=== PATIENT | female | born 1995 | race Hispanic/Latino ===

== ENCOUNTER 2019-03-01 00:09 | Outpatient (CLI) | payer OTHER ==
[2019-03-01 17:42] LABS: Hemoglobin 14.1 g/dL (12.0-16.0); Mean Corpuscular HGB CONC 34.2 g/dL (32.0-36.0); Mean Corpuscular Hemoglobin 29.3 pg (27.0-31.0); Mean Corpuscular Volume 85.6 fL (78.0-98.0); Platelet Count 261 thou/uL (130-400); RBC Distribution Width 11.6 % (11.5-14.5); Red Blood Cell (RBC) Count 4.82 mill/uL (4.20-5.40); White Blood Cell (WBC) Count 9.3 thou/uL (4.8-10.8)
[2019-03-01 17:44] LABS: BHCG - Serum Negative (NEGATIVE); Pregs Control Background? CLEAR/WHITE (CLR/WHITE); Pregs Control Bar Appear? YES (CONTROL BAR)
[2019-03-01 18:03] LABS: Anion Gap 14 mmol/L (10-20); BUN (Urea Nitrogen) 12 mg/dL (7.0-18.7); Calc. Creatinine Clearance 0 mL/min (70-130); Calcium 9.7 mg/dL (7.8-10.44); Carbon Dioxide 21 mmol/L (22-29); Chloride 109 mmol/L (98-107); Estimated GFR-MDRD 79; Glucose 83 mg/dL (70-105); Potassium 4.1 mmol/L (3.5-5.1); Sodium 140 mmol/L (136-145)
--- NOTE | 2019-03-04 07:06 | EKG ---
Test Reason : Blood Pressure : / mmHG Vent. Rate : 069 BPM Atrial Rate : 069 BPM P-R Int : 158 ms QRS Dur : 090 ms QT Int : 378 ms P-R-T Axes : 064 087 067 degrees QTc Int : 405 ms Normal sinus rhythm with sinus arrhythmia Normal ECG No previous ECGs available Confirmed by AMAURY BOUDREAUX ([id number]) on 03/04/2019 7:06:38 AM Referred By: RASHI Confirmed By:AMAURY BOUDREAUX
== END 2019-03-01 00:10 | disposition home or self-care (01) ==
LOC: LABBT 00:09
PROVIDERS: ATTEND Neurological Surgery
DX: Z01.818 Encounter for other preprocedural examination (principal); M54.16 Radiculopathy, lumbar region
CPT/HCPCS: 80048; 84703; 85027; 93005; 93010

== ENCOUNTER 2019-03-03 05:45 | Day surgery (SDC) | payer OTHER ==
[2019-03-01 16:53] VITALS: BMI 28.3
[2019-03-03] MEDS ORDERED: Fentanyl 100 MCG/2 ML VIAL ONE ×2 (06:21→07:39)
[2019-03-03] MEDS ORDERED: Midazolam HCl 2 mg/2 ml Vial ONE (06:50)
[2019-03-03] MEDS ORDERED: HYDROmorphone 2 MG/ML VIAL ONE (07:58)
--- NOTE | 2019-03-03 08:12 | OP ---
DATE OF PROCEDURE: 03/03/2019 [place] HAND: Alina Crenshaw PA-C PROCEDURE PERFORMED: Right L4-L5 microdiskectomy. DESCRIPTION OF PROCEDURE: The patient was brought to the operating room and intubated. She was rolled in the prone position on gel-filled chest rolls. An incision was made exposing right L4-L5 and the level was confirmed by x-ray. We performed a right L4-L5 hemilaminectomy and removed the ligament, identified the right L5 nerve root and beneath it was a large extruded with disk herniation removed in one large piece. Several additional fragments were then removed. After complete decompression was secured, the wound was extensively irrigated and maximum hemostasis was secured. Vancomycin powder was applied and the wound was closed in anatomic layers. Job ID: [id number]
[2019-03-03] MEDS ORDERED: Ondansetron PF 4 MG/2 ML Vial ONE (13:26)
[2019-03-03] MEDS ORDERED: Rocuronium Bromide 10 MG/ML (10ML VIAL) ONE (13:26)
[2019-03-03] MEDS ORDERED: Glycopyrrolate 0.2 MG/ML 5 ML SYRINGE ONE (13:26)
[2019-03-03] MEDS ORDERED: Lidocaine 1% PF 5 ML VIAL ONE (13:26)
[2019-03-03] MEDS ORDERED: PROPOFOL 200 MG/20 ML VIAL ONE (13:26)
[2019-03-03] MEDS ORDERED: Dexamethasone 20 MG/5 ML VIAL ONE (13:26)
== END 2019-03-03 10:18 | disposition home or self-care (01) ==
LOC: SDC 05:45
PROVIDERS: ATTEND Neurological Surgery
PROC: 01NB0ZZ Release Lumbar Nerve, Open Approach (ICD-10-PCS; principal; 2019-03-03)
DX: M51.16 Intervertebral disc disorders with radiculopathy, lumbar region (principal)
CPT/HCPCS: 76000; J0690; J1100; J1170; J2001; J2250; J2405; J2704; J3010; J3370

== ENCOUNTER 2019-03-17 16:08 | Outpatient (CLI) | payer OTHER ==
--- NOTE | 2019-03-17 16:38 | RAD ---
LUMBAR SPINE: 03/17/19 Two views. HISTORY: Lumbar radiculopathy. On AP view, there is slight curvature to the left. This may be positional. In the lateral view, the l umbar vertebrae maintain normal height and alignment. Disc spaces are preserved. No evidence of spon dylolisthesis or spondylolysis. There is mild facet hypertrophy present and some minimal spurring at L4-5. There is mild loss of disc space at L4-5. IMPRESSION: There are early mild degenerative changes at L4-5 with minimal spurring and mild loss of disc space. Mild facet hypertrophy is also noted. Curvature in the AP projection is seen possibly positional. POS: [facility]
== END 2019-03-17 16:09 | disposition home or self-care (01) ==
LOC: TBSIIMAG 16:08
PROVIDERS: ATTEND Neurological Surgery
DX: M47.26 Other spondylosis with radiculopathy, lumbar region (principal)
CPT/HCPCS: 72100

== ENCOUNTER 2019-08-12 15:21 | Outpatient (CLI) | payer OTHER ==
--- NOTE | 2019-08-12 17:00 | MRI ---
MRI Lumbar Spine with and without contrast: HISTORY: Lumbar radiculopathy COMPARISON: None FINDINGS: Conus medullaris is normal in morphology and terminates at the L1 level. There is endplate marrow edema of inferior L4 and superior L5 related to Modic type I degenerative si gnal alteration. No significant malalignment. Posterior decompression of L4-5 level with evidence of a right hemilaminectomy. Incidental note of small T2 hyperintensity of the posterior left kidney likely a small cyst. Evaluation of postcontrast imaging reveals enhancement related to posterior decompression of the L4-5 level. There is right asymmetric enhancement of the vertebral canal of the L4-5 level compatible with epidural fibrosis. L1-2:No significant stenosis L2-3:No significant stenosis L3-4:Mild disc bulge with slight effacement of ventral thecal sac L4-5:Broad-based central disc protrusion, asymmetric to the right, with moderate to severe central ca nal stenosis. There is impingement of the bilateral L5 nerve roots more so on the right. Mild bilateral neural foraminal stenosis. Mild to moderate bilateral facet osteoarthritis L5-S1:Mild disc osteophyte complex. Mild bilateral facet osteoarthritis. IMPRESSION: Postoperative lumbar spine. Large disc protrusion at L4-5 along with superimposed epidural fibrosis r esults in moderate to severe central canal stenosis, as well as impingement of the bilateral traversing S1 nerve roots. Incidental note of probable small left renal cyst. Dedicated renal ultrasound is recommended for furt her assessment. Transcribed Date/Time: 08/12/2019 5:31 PM
== END 2019-08-12 15:22 | disposition home or self-care (01) ==
LOC: SCSMRI 15:21
PROVIDERS: ATTEND Neurological Surgery
DX: M51.16 Intervertebral disc disorders with radiculopathy, lumbar region (principal); M48.061 Spinal stenosis, lumbar region without neurogenic claudication; Z98.890 Other specified postprocedural states
CPT/HCPCS: 72158

== ENCOUNTER 2019-10-26 07:25 | Inpatient (IN) | payer OTHER ==
[2019-10-25 08:46] VITALS: BMI 29.6
[2019-10-26] MEDS ORDERED: Sodium Chloride 0.9% 10 ML ONE (08:14)
[2019-10-26 08:16] LABS: Hemoglobin 14.7 g/dL (12.0-16.0); Mean Corpuscular HGB CONC 35.1 g/dL (32.0-36.0); Mean Corpuscular Hemoglobin 30.2 pg (27.0-31.0); Mean Corpuscular Volume 86.2 fL (78.0-98.0); Mean Platelet Volume 7.7 fL (7.4-10.4); Platelet Count 259 thou/uL (130-400); RBC Distribution Width 11.6 % (11.5-14.5); Red Blood Cell (RBC) Count 4.86 mill/uL (4.20-5.40); White Blood Cell (WBC) Count 6.7 thou/uL (4.8-10.8)
[2019-10-26 08:22] LABS: BHCG - Serum Negative (NEGATIVE); Pregs Control Background? CLEAR/WHITE (CLR/WHITE); Pregs Control Bar Appear? YES (CONTROL BAR)
[2019-10-26 08:30] LABS: Anion Gap 12 mmol/L (10-20); BUN (Urea Nitrogen) 13 mg/dL (7.0-18.7); Calc. Creatinine Clearance 128 mL/min (70-130); Calcium 9.5 mg/dL (7.8-10.44); Carbon Dioxide 25 mmol/L (22-29); Chloride 106 mmol/L (98-107); Estimated GFR-MDRD 73; Glucose 102 mg/dL (70-105); Sodium 139 mmol/L (136-145)
[2019-10-26] MEDS ORDERED: Fentanyl 100 MCG/2 ML VIAL ONE ×4 (08:37→11:35)
[2019-10-26] MEDS ORDERED: Ketorolac Tromethamine 30 MG/ML VIAL ONE (09:45)
[2019-10-26] MEDS ORDERED: Lidocaine 1% PF 5 ML VIAL ONE (09:45)
[2019-10-26] MEDS ORDERED: Glycopyrrolate 0.2 MG/ML 5 ML SYRINGE ONE (09:45)
[2019-10-26] MEDS ORDERED: Dexamethasone 20 MG/5 ML VIAL ONE (09:45)
[2019-10-26] MEDS ORDERED: PROPOFOL 200 MG/20 ML VIAL ONE (09:45)
[2019-10-26] MEDS ORDERED: Rocuronium Bromide 10 MG/ML (10ML VIAL) ONE (09:45)
[2019-10-26] MEDS ORDERED: Ondansetron PF 4 MG/2 ML Vial ONE (09:45)
[2019-10-26] MEDS ORDERED: HYDROmorphone 2 MG/ML VIAL ONE (10:17)
--- NOTE | 2019-10-26 10:59 | OP ---
DATE OF PROCEDURE: 10/26/2019 VP SECURITIES: Alina Crenshaw PA-C PROCEDURES PERFORMED: Right L4-L5 laminectomy, facetectomy, foraminotomy, interbody arthrodesis, intervertebral biomechanical device, local morselized autograft, demineralized bone matrix, posterolateral arthrodesis, and pedicle screw instrumentation right L4-L5. DESCRIPTION OF PROCEDURE: The patient was brought to the operating room and intubated. She was rolled in a prone position on gel-filled chest rolls. The L4-L5 levels were exposed bilaterally. We explored the region of the right L4-L5 prior hemilaminectomy, extended the laminectomy and performed complete facetectomy here for the purpose of decompression. We next accessed the recurrent disk herniation and removed additional herniated disk material. The disk itself was incised and debrided and the bony endplates were decorticated for the purpose of arthrodesis. Next, an appropriate sized intervertebral biomechanical PEEK device was brought in the field. It was filled with demineralized bone matrix and local morselized autograft, and tapped in place securely at L4-L5. Next, pedicle screws were placed at right L4 and right L5 using lateral fluoroscopic guidance and the position was confirmed by x-ray. Adam was secured between the screws, connected by nuts, which were final tightened. The wound was then extensively irrigated. MAC hemostasis was secured. The left-sided lamina and posterolateral surfaces were prepared for the purpose of arthrodesis and a combination of demineralized bone matrix and local morselized autograft were laid over the left lamina and posterolateral surfaces for the purpose of arthrodesis. Vancomycin powder was applied and the wound was then closed in anatomic layers. Job ID: [id number]
[2019-10-26] MEDS ORDERED: HYDROcodone/Acetaminophen 10/325 mg Tablet ONE (14:32)
== END 2019-10-26 15:43 | disposition home or self-care (01) | DRG 460 ==
LOC: SURG A 07:25 → EDSTATUS 08:52
PROVIDERS: ADMIT Neurological Surgery; ATTEND Neurological Surgery
PROC: 0SG00AJ Fusion of Lumbar Vertebral Joint with Interbody Fusion Device, Posterior Approach, Anterior Column, Open Approach (ICD-10-PCS; principal; 2019-10-26)
PROC: 01NB0ZZ Release Lumbar Nerve, Open Approach (ICD-10-PCS; 2019-10-26)
PROC: 0SB20ZZ Excision of Lumbar Vertebral Disc, Open Approach (ICD-10-PCS; 2019-10-26)
DX: M47.26 Other spondylosis with radiculopathy, lumbar region (principal); M51.16 Intervertebral disc disorders with radiculopathy, lumbar region
CPT/HCPCS: 36415; 76000; 80048; 84703; 85027; J0690; J1100; J1170; J1885; J2001; J2405; J2704; J3010; J3370; J3490